=== PATIENT | female | born 1960 | race Caucasian/White ===

== ENCOUNTER 2017-02-18 03:12 | Emergency (ER) | payer OTHER ==
[~2017-02-18] VITALS: Ht 157.5 cm; Wt 72.7 kg
[~2017-02-18 03:12] MED LIST: BECL8.7A5 IH; Biest PO; L.AC1CAP6 PO; METR500T PO; [UNRECOGNIZED DRUG - OTHER]
[2017-02-18 03:14] VITALS: BP 158/73; PULSE 71; RESP 18; O2SAT 100
--- NOTE | 2017-02-18 03:26 | ED.REPORT ---
HPI-General Illness Date of Service Feb 18, 2017 ED Provider: Sumit Garcias MD 57 y/o female with prior renal cyst rupture and pain, presents to the ED complaining of left flank pain, onset yesterday. The pt states it initially felt like a muscle spasm but now feels like worsening "kidney pain". She denies fever, dysuria, diarrhea, constipation, nausea and vomiting. She states she had similar sx before when she was diagnosed with a burst cyst on her kidney. At that time, however, she had severe abdominal pain. She has known small kidney stones in the kidney but no history of obstructive stone. Nursing Notes Stated Complaint: BACK PAIN Chief Complaint: Female Abdominal Pain Nursing Notes Reviewed: Yes Allergies: Coded Allergies: No Known Allergies (Unverified Allergy, Unknown, 02/18/17) Scheduled ([Biest]) GTTS PO DAILY ([Womens Complex]) 1 TAB DAILY Beclomethasone Dipropionate (Qvar) 8.7 Gm Aer.w.adap 8.7 GM IH BID Famotidine (Pepcid) 20 Mg Tablet 20 MG PO BID L.acidoph & Paracasei,B.lactis (Probiotic) 10 Billion Cell Capsule 2 EACH PO DAILY Metronidazole (Flagyl) 500 Mg Tablet 500 MG PO Q8 Scheduled PRN Hydrocodone-Acetaminophen 5-325 mg (Hydrocodone-Acetaminophen 5-325 mg) 1 Each Tablet 1 TABLET PO Q4H PRN PRN For Pain Lorazepam (Lorazepam) 1 Mg Tablet 1 MG PO TID PRN PRN For Anxiety Methocarbamol (Robaxin-750) 750 Mg Tablet 1-2 TAB PO QID PRN PRN For Spasm General Time Seen by MD: 03:25 Chief Complaint Other (left flank pain) Hx Obtained From: Patient Arrived By: Walk-in Sudden in Onset?: Yes Onset Occurred: Yesterday Symptom Duration: Since onset Quality: Painful (left flank) Radiation: : Does not radiate Severity: Current: Moderate Severity: Maximum: Moderate Recent Healthcare: No recent doctor visit Past Medical History Past Medical History arthritis asthma Past Surgical History knee replacement laminectomy hip replacement Smoking History Never Smoker Social History Alcohol Use: Denies alcohol use Drug Use: Denies drug use Other Social History: Good social support, Ambulatory Status Independent Review of Systems Full Review of Systems Constitutional: Denies: Fever GI: Denies: Constipation, Diarrhea, Nausea, Vomiting Female: Reports: Flank pain (left), Denies: Dysuria Complete sys rev & neg: except as marked. Physical Exam Vital Signs Vital Signs Date Time Temp Pulse Resp B/P Pulse Ox O2 Delivery O2 Flow Rate FiO2 02/18/17 06:43 62 18 158/76 98 Room Air 02/18/17 03:14 36.3 71 18 158/73 100 Room Air Initial VS: Reviewed Head / Eyes: Atraumatic, Normocephalic Neck: Supple, Non-tender, Full range of motion Respiratory: Breath sounds normal, Clear to auscultation, No respiratory distress Cardiovascular: Regular rate & rhythm, Heart sounds normal, Intact distal pulses Abdomen / GI: Soft, Non-tender, No guarding, No rebound, No distention Extremities: Vascular intact, Neuro intact, No swelling, No tenderness Skin: Warm, Dry, No cyanosis Neurologic: Alert, Oriented, Nonfocal General/Constitutional: Awake, Alert, Cooperative Distress / Hydration: Positive: Distress mild Back: Atraumatic, Full range of motion Interpretation & Diagnostics Lab Results Interpretation Result Diagram: 02/18/17 0345 02/18/17 0345 Test 02/18/17 03:45 02/18/17 05:45 White Blood Count 7.6th/mm3 (3.8-10.1) Red Blood Count 4.07mil/mm3 (3.90-5.20) Hemoglobin 12.6g/dL (12.0-15.6) Hematocrit 38.4% (35.0-46.0) Mean Corpuscular Volume 94.3fL (81-100) Mean Corpuscular Hemoglobin 31.0pg (27.0-35.0) Mean Corpuscular Hemoglobin Concent 32.8% (32.0-37.0) Red Cell Distribution Width 13.2% (12.3-15.4) Platelet Count 212bil/L (150-400) Neutrophils (%) (Auto) 51.6% (40-74) Lymphocytes (%) (Auto) 35.8% (14-46) Monocytes (%) (Auto) 9.7% (4-12) Eosinophils (%) (Auto) 2.5% (0-5) Basophils (%) (Auto) 0.3% (0-3) Prothrombin Time 10.0sec (8.1-12.5) Prothromb Time International Ratio 0.94ratio Sodium Level 138mEq/L (134-144) Potassium Level 4.1mEq/L (3.5-5.2) Chloride Level 102mEq/L (97-108) Carbon Dioxide Level 21mmol/L (18-29) Blood Urea Nitrogen 19mg/dL (6-24) Creatinine 0.64mg/dL (0.57-1.00) Estimat Glomerular Filtration Rate 136mL/min (>59) Glucose Level 111mg/dL (60-99) Lactic Acid Level 1.3mmol/L (0.4-2.0) Calcium Level 8.7mg/dL (8.5-10.1) Magnesium Level 1.8mg/dL (1.6-2.6) Total Bilirubin 0.3mg/dL (0.0-1.2) Aspartate Amino Transf (AST/SGOT) 18U/L (0-50) Alanine Aminotransferase (ALT/SGPT) 16U/L (0-32) Alkaline Phosphatase 100U/L (25-165) Total Protein 6.3g/dL (6.4-8.4) Albumin 3.8g/dL (3.4-5.0) Lipase 17U/L (13-60) Urine Color Straw (YELLOW) Urine Appearance Hazy (CLEAR,HAZY) Urine pH 6.5 (5.0-8.0) Urine Specific [place] 1.010 (1.003-1.035) Urine Protein Negativemg/dL (NEG,TRACE) Urine Glucose (UA) Negativemg/dL (NEGATIVE) Urine Ketones Negativemg/dL (NEGATIVE) Urine Occult Blood Negative (NEGATIVE) Urine Nitrite Positive (NEGATIVE) Urine Bilirubin Negative (NEGATIVE) Urine Urobilinogen Normalmg/dL (NORMAL) Urine Leukocyte Esterase Negative (NEGATIVE) Urine RBC 0-2/hpf (0-2) Urine WBC 0-5/hpf (0-5) Urine Epithelial Cells Moderate/hpf (NONE-MOD) Urine Crystals None seen (NONE SEEN) Urine Bacteria Many/hpf (NONE-FEW) Urine Hyaline Casts None/lpf (NONE) Urine Granular Casts None seen (NONE SEEN) Urine Waxy Casts None seen (NONE SEEN) Urine Red Blood Cell Casts None seen (NONE SEEN) Urine White Blood Cell Casts None seen (NONE SEEN) Urine Mucus None seen (None Seen) Urine Trichomonas None seen (NONE SEEN) Urine Yeast None (NONE SEEN) Urinalysis Comment None Urine Culture Reflexed Indicated ECG Interpretation ECG Interpretation: Normal sinus rhythm. Rate 83. Prolonged TX interval. Incomplete right bundle branch block Low voltage, precordial leads Probable LVH with secondary repolarization abnormalities Time: 03:41 Interpreted by: ED physician CT Abd / Pelvis Interpretation Conclusion:nonobstructing renal calculi bilaterally. Diffuse hepatic steatosis. Colonic diverticulosis without signs of diverticulitis. Signed by Dr. Britt Han 02/18/17 04:59 Study type: Abdominal CT IV contrast Interpretation / Wet Read by: Interpret - Radiologist Re-Eval/Medical Decision Med Decision/Clinical Course 57-year-old with palpation elicitable muscle spasm in her back, and no other findings to suggest significant intra-abdominal pathology. Her prior presentation with renal cyst rupture was a typical and she was not able to be convinced that there was not some significant process going on without a CAT scan. Urine was unremarkable and labs reassuring otherwise. CT scan unremarkable. Small nonobstructing stones noted in both kidneys. She is discharged now with ten Vicodin for immediate pain relief, followed by ongoing ibuprofen with Pepcid. Robaxin previously prescribed but at low dose, represcribed that 750-1500 mg 4 times a day. Total of ten 0.5 mg Ativan given. Follow up with PCP. Source of Hx: Old records Counseled Regarding: Diagnosis, Lab results Discharge & Departure Primary Impression: Spasm of lumbar paraspinous muscle Disposition: Home Discharge Condition All VS Reviewed: Yes Condition: Stable Patient Instructions: Acute Low Back Pain (DC), Muscle Spasm (ED) Refer to discharge patient information Referrals: Curtis Haddad DO (PCP) Scribe Attestation Portions of this note were transcribed by Holly Saldivar. I,, personally performed the history, physical exam and medical decision-making;I reviewed and confirmed the accuracy of the information in the transcribed note. Signed by Aaron Kent. 02/18/17 copies to: Curtis Haddad Christopher W MD Feb 18, 2017 03:26 Holly Saldivar Feb 18, 2017 03:37
[2017-02-18] MEDS ORDERED: HYDROmorphone 1 mg/mL Inj IVPUSH PRN (03:35)
[2017-02-18] MEDS ORDERED: Ondansetron 2 mg/mL 2 mL Inj IVPUSH ONE (03:35)
[2017-02-18 03:55] LABS: BASOPHILS % (AUTO) 0.3 % (0-3); EOSINOPHILS % (AUTO) 2.5 % (0-5); MONOCYTES % (AUTO) 9.7 % (4-12); Mean Corpuscular Volume 94.3 fL (81-100); NEUTROPHILS % (AUTO) 51.6 % (40-74); Platelet Count 212 bil/L (150-400)
[2017-02-18 04:12] LABS: INR 0.94 ratio
[2017-02-18 04:19] LABS: Magnesium 1.8 mg/dL (1.6-2.6)
[2017-02-18 06:00] LABS: APPEARANCE,URINE HAZY (CLEAR,HAZY); COLOR,URINE STRAW (YELLOW); OCCULT BLOOD,URINE NEGATIVE (NEGATIVE); PH,URINE 6.5 (5.0-8.0); UROBILINOGEN,URINE NORMAL (NORMAL)
[2017-02-18] MEDS ORDERED: FAMO20T PO (06:27)
[2017-02-18] MEDS ORDERED: METH-313 PO (06:27)
[2017-02-18] MEDS ORDERED: LORA1TAB PO (06:29)
[2017-02-18] MEDS ORDERED: HYDR-4003 PO (06:29)
[2017-02-18] MEDS ORDERED: Ketorolac 15 mg/mL Inj IVPUSH ONE (06:30)
[2017-02-18 06:43] VITALS: BP 158/76; PULSE 62; RESP 18; O2SAT 98
--- NOTE | 2017-02-18 08:57 | DRSVH ---
PROCEDURE: CT ABDOMEN AND PELVIS WITH CONTRAST ([id number]) INDICATIONS: left flank pain TECHNIQUE: After the administration of intravenous contrast, 5 mm thick sections acquired from the diaphragm to the symphysis. 5 mm coronal and sagittal reformats were acquired. For radiation dose reduction, the following was used: automated exposure control, adjustment of mA and/or kV according to patient [place]. COMPARISON: [facility], CT, CT ABD PELVIS W CON, 05/18/2015, 0:08. FINDINGS: Image quality: Excellent. ABDOMEN: Lung bases: Lung bases are clear. Heart size is normal. Solid organs: Liver and spleen are normal in size and enhancement. Gallbladder is unremarkable. Bi liary system is non dilated. Pancreas enhances normally. No adrenal nodules. Kidneys demonstrate n ormal size and enhancement, without hydronephrosis. There are multiple punctate nonobstructing calcul i within the right renal pelvis. There is a subcentimeter low density right cortical cystic lesion. There are small left pararenal cysts. Peritoneum and bowel: There is a small hiatal hernia. Bowel loops demonstrate normal wall thickness and caliber. The appendix is thin walled and gas filled. There are scattered sigmoid diverticula. No evidence for diverticulitis. No free fluid or air. Nodes and vessels: No retroperitoneal or mesenteric adenopathy by size criteria. Aorta and inferior vena cava are normal in size. Miscellaneous: There is a small fat containing umbilical hernia. PELVIS: Genitourinary: Bladder wall thickness is normal. Miscellaneous: No inguinal adenopathy. There is a small right fat-containing inguinal hernia. Bones: No suspicious bony lesions. No vertebral body compression fractures. Right hip arthroplasty is unremarkable. IMPRESSION: 1. No acute intra-abdominal findings. Normal appendix. 2. Diverticulosis. No acute diverticulitis. 3. Nonobstructing nephrolithiasis. Note: The preliminary [facility] interpretation and the final report are concordant. Dictated by: Christine Contreras M.D. on 02/18/2017 at 8:35 Approved by: Christine Contreras M.D. on 02/18/2017 at 8:55
== END 2017-02-18 06:44 | disposition home or self-care (01) ==
LOC: SED 03:14
DX: M62.830 Muscle spasm of back (principal); N20.0 Calculus of kidney; J45.909 Unspecified asthma, uncomplicated; K21.9 Gastro-esophageal reflux disease without esophagitis; Z96.659 Presence of unspecified artificial knee joint; Z96.649 Presence of unspecified artificial hip joint
CPT/HCPCS: 36415; 74177; 80053; 81000; 83605; 83690; 83735; 85025; 85610; 87086; 87088; 87186; 96361; 96374; 96375; 96376; 99285; J1170; J1885; Q9967